=== PATIENT | female | born 1965 | race Caucasian/White ===

== ENCOUNTER 2021-04-01 18:48 | Observation (INO) | payer OTHER ==
[2021-04-01 19:15] VITALS: TEMP 98
[2021-04-01] MEDS ORDERED: NITROGLYCERIN OINT 1 INCH/GM PACKET TOPICAL STA (19:18)
[2021-04-01] MEDS ORDERED: ASPIRIN 81 MG PO STA (19:18)
--- NOTE | 2021-04-01 19:21 | ED ---
General Adult HPI - General Chief complaint: Chest Pain Stated complaint: Chest Pain Time Seen by Provider: 04/01/21 18:50 Source: patient, RN notes reviewed Mode of arrival: ambulatory Limitations: no limitations - History of Present Illness Initial comments: Patient is a pleasant 56-year-old female presenting to the emergency Department with complaints of chest discomfort. Onset of symptoms was this morning. Patient has been at [facility] for the past 4 days. Patient is there secondary to history of snorting heroin. Patient states she normally does this 2 or 3 times per day. No history of similar chest discomfort previously. Discomfort is mild at this time. Discomfort is described as heaviness with some radiation towards the shoulder. There is some mild associated dyspnea and nausea. Patient did feel a little bit sweaty earlier. No leg pain or leg swelling. Symptoms do worsen with exertion. - Related Data Allergies Allergy/AdvReac Type Severity Reaction Status Date / Time Sulfa (Sulfonamide Allergy Swelling Verified 04/01/21 20:07 Antibiotics) Review of Systems ROS Statement: Those systems with pertinent positive or pertinent negative responses have been documented in the HPI. ROS Other: All systems not noted in ROS Statement are negative. Constitutional: Denies: fever Eyes: Denies: eye pain ENT: Denies: ear pain Respiratory: Denies: cough Cardiovascular: Reports: as per HPI, chest pain Endocrine: Reports: fatigue Gastrointestinal: Denies: abdominal pain Genitourinary: Denies: dysuria Musculoskeletal: Denies: back pain Skin: Denies: rash Neurological: Denies: weakness Past Medical History Past Medical History: Osteoarthritis (OA) History of Any Multi-Drug Resistant Organisms: None Reported Past Surgical History: Cholecystectomy, Orthopedic Surgery Past Psychological History: No Psychological Hx Reported Smoking Status: Former smoker Past Alcohol Use History: None Reported Past Drug Use History: Heroin General Exam Limitations: no limitations General appearance: alert, in no apparent distress Head exam: Present: normocephalic Eye exam: Present: normal appearance Neck exam: Present: normal inspection Respiratory exam: Present: normal lung sounds bilaterally. Absent: chest wall tenderness Cardiovascular Exam: Present: regular rate, normal rhythm, normal heart sounds Expanded Peripheral pulses: 2+: Radial (R), Radial (L), Posterior Tibialis (R), Posterior Tibialis (L) GI/Abdominal exam: Present: soft. Absent: tenderness Extremities exam: Present: normal inspection. Absent: pedal edema, calf tenderness Neurological exam: Present: alert Psychiatric exam: Present: normal affect, normal mood Skin exam: Present: normal color Course Vital Signs 04/01/21 04/01/21 04/01/21 19:07 19:27 19:30 Temperature 98.0 F Pulse Rate 58 L 53 L Pulse Rate [ 56 L [facility] [employer] ] Respiratory 18 18 Rate Blood Pressure 141/74 141/74 O2 Sat by Pulse 100 99 Oximetry EKG Findings - EKG Comments: EKG Findings:: Since bradycardia with a rate of 59. AR 126. QRS 98. QT 474. QTC 469. Left axis. Normal QRS. No acute ST change. Medical Decision Making - Medical Decision Making Patient with emesis. Medications ordered. Patient updated. Dr. Mao dorsey for admission covering for hospital call. Case was discussed with Dr. Hinkle, who will admit. - Lab Data Result diagrams: 04/01/21 19:25 04/01/21 03:50 Lab Results 04/01/21 04/01/21 04/01/21 Range/Units 03:50 19:25 19:25 WBC 8.5 (3.8-10.6) k/uL RBC 4.97 (3.80-5.40) m/uL Hgb 13.9 (11.4-16.0) gm/dL Hct 42.9 (34.0-46.0) % MCV 86.3 (80.0-100.0) fL MCH 27.9 (25.0-35.0) pg MCHC 32.3 (31.0-37.0) g/dL RDW 14.7 (11.5-15.5) % Plt Count 210 (150-450) k/uL MPV 7.0 Neutrophils % 88 % Lymphocytes % 10 % Monocytes % 2 % Eosinophils % 0 % Basophils % 0 % Neutrophils # 7.5 (1.3-7.7) k/uL Lymphocytes # 0.8 L (1.0-4.8) k/uL Monocytes # 0.2 (0-1.0) k/uL Eosinophils # 0.0 (0-0.7) k/uL Basophils # 0.0 (0-0.2) k/uL Sodium 136 L (137-145) mmol/L Potassium 4.5 (3.5-5.1) mmol/L Chloride 99 (98-107) mmol/L Carbon Dioxide 28 (22-30) mmol/L Anion Gap 9 mmol/L BUN 15 (7-17) mg/dL Creatinine 0.56 (0.52-1.04) mg/dL Est GFR (CKD-EPI)AfAm >90 (>60 ml/min/1.73 sqM) Est GFR (CKD-EPI)NonAf >90 (>60 ml/min/1.73 sqM) Glucose 106 H (74-99) mg/dL Calcium 9.9 (8.4-10.2) mg/dL Magnesium 2.1 (1.6-2.3) mg/dL Total Bilirubin 0.5 (0.2-1.3) mg/dL AST 36 (14-36) U/L ALT 26 (4-34) U/L Alkaline Phosphatase 71 (38-126) U/L Troponin I <0.012 (0.000-0.034) ng/mL Total Protein 7.3 (6.3-8.2) g/dL Albumin 4.3 (3.5-5.0) g/dL - Radiology Data Radiology results: image reviewed Disposition Clinical Impression: Chest pain Disposition: ADMITTED IP TO THIS [facility] Is patient prescribed a controlled substance at d/c from ED?: No Referrals: Nonstaff,Physician [Primary Care Provider] - 1-2 days Decision Time: 20:05
[2021-04-01 19:43] LABS: Basophils % (A) 0 %; Eosinophils % (A) 0 %; HCT 42.9 % (34.0-46.0); HGB 13.9 gm/dL (11.4-16.0); Lymphocytes # (A) 0.8 k/uL (1.0-4.8); Lymphocytes % (A) 10 %; MCH 27.9 pg (25.0-35.0); MCHC 32.3 g/dL (31.0-37.0); MCV 86.3 fL (80.0-100.0); Monocytes # (A) 0.2 k/uL (0-1.0); Monocytes % (A) 2 %; Neutrophils # (A) 7.5 k/uL (1.3-7.7); Neutrophils % (A) 88 %; Platelet Count 210 k/uL (150-450); RBC 4.97 m/uL (3.80-5.40); RDW 14.7 % (11.5-15.5); WBC 8.5 k/uL (3.8-10.6)
[2021-04-01 19:52] LABS: ALT 26 U/L (4-34); AST 36 U/L (14-36); African American GFR (CKD) >90 (>60 ml/min/1.73 sqM); Albumin 4.3 g/dL (3.5-5.0); Alkaline Phosphatase 71 U/L (38-126); Anion Gap 9 mmol/L; Blood Urea Nitrogen 15 mg/dL (7-17); Calcium 9.9 mg/dL (8.4-10.2); Carbon Dioxide 28 mmol/L (22-30); Chloride 99 mmol/L (98-107); Glucose 106 mg/dL (74-99); Magnesium 2.1 mg/dL (1.6-2.3); Non-African American GFR(CKD) >90 (>60 ml/min/1.73 sqM); Potassium 4.5 mmol/L (3.5-5.1); Sodium 136 mmol/L (137-145); Total Bilirubin 0.5 mg/dL (0.2-1.3); Total Protein 7.3 g/dL (6.3-8.2)
[2021-04-01 20:02] LABS: D-Dimer <0.17 mg/L FEU (<0.60); Partial Thromboplastin Time 22.7 sec (22.0-30.0); Prothrombin Time 10.4 sec (9.0-12.0)
[2021-04-01] MEDS ORDERED: SODIUM CHLORIDE 0.9% 1,000 ML IV STA (20:03)
[2021-04-01] MEDS ORDERED: ONDANSETRON 4 MG/2 ML VIAL IVP STA (20:03)
[2021-04-01] MEDS ORDERED: FAMOTIDINE 20 MG/2 ML VIAL IV STA (20:03)
[2021-04-01] MEDS ORDERED: NITROGLYCERIN SL TABS 0.4 MG TAB SUBLINGUAL PRN (20:05)
--- NOTE | 2021-04-01 20:20 | XR ---
EXAMINATION TYPE: XR chest 2V DATE OF EXAM: 04/01/2021 COMPARISON: NONE HISTORY: Chest pain TECHNIQUE: 2 views FINDINGS: Heart and mediastinum are normal. Lungs are clear. Diaphragm is normal. Bony thorax is inta ct. There are chest leads. IMPRESSION: Normal chest.
[2021-04-01] MEDS: ACETAMINOPHEN TAB 500 MG TAB PO PRN (23:07)
[2021-04-02] MEDS: NITROGLYCERIN OINT 1 INCH/GM PACKET TOPICAL SCH ×2 (02:08→09:16)
[2021-04-02 06:54] VITALS: RESP 15
[2021-04-02] MEDS ORDERED: ASPIRIN 325 MG TAB PO SCH (09:00)
[2021-04-02] MEDS ORDERED: DOBUTamine DRIP for NUC MED 500 MG in DEXTROSE/WATER 1 250ML.BAG IV PRN (09:06)
[2021-04-02] MEDS: ACETAMINOPHEN TAB 500 MG TAB PO PRN (09:14)
[2021-04-02 09:26] LABS: Chol/HDL Ratio 2.46; LDL Cholesterol,Calculated 70.6 mg/dL (0.0-131.0); VLDL Calculation 15.4 mg/dL (5.00-40.00)
--- NOTE | 2021-04-02 09:52 | P.CRDCN ---
History of Present Illness Consult date: 04/02/21 History of present illness: HISTORY OF PRESENT ILLNESS: This is a 56-year-old female with a past medical history significant for former nicotine dependence (quit 16 years ago) and heroin use. 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 We have been asked to see the patient in consultation for chest pain. Patient examined at the bedside. Patient states she is currently at [place] for heroin use. She states she snorts heroin and last used 3 days ago. Patient states yesterday morning she woke up and was feeling in her normal state of health. She states around 10 AM she started feeling a heaviness in her chest and nausea. She reports the pain went into her left arm and jaw. She states the pain lasted until about 5 PM when she finally told the staff and was brought to the hospital for further evaluation. Patient denies chest pain or pressure at the time of examination. Patient states she has a family history of coronary artery disease in her mom had 2 heart attacks when she was in her 50s and her dad had open heart surgery when he was in his 70s. EKG reveals sinus mechanism with no signs of acute ischemia Chest xray negative for acute process Laboratory data: WBC 8.5. Hemoglobin 13.9. Platelet count 210. D-dimer 0.17. Sodium 136. Potassium 4.5. BUN 15. Creatinine 0.56. Magnesium 2.1. Current home cardiac medications include Catapres0.1-0.3mg every 4 hours as needed REVIEW OF SYSTEMS: At the time of my exam: CONSTITUTIONAL: Denies fever or chills. HEENT: Denies blurred vision, vision changes, or eye pain. Denies hemoptysis CARDIOVASCULAR: Denies chest pain. Denies orthopnea. Denies PND. Denies palpitations RESPIRATORY: Denies shortness of breath. GASTROINTESTINAL: Denies abdominal pain. Denies nausea or vomiting. HEMATOLOGIC: Denies bleeding disorders. GENITOURINARY: Denies any blood in urine. SKIN: Denies pruitis. Denies rash. PHYSICAL EXAM: VITAL SIGNS: Reviewed. GENERAL: Well-developed in no acute distress. HEENT: Head is normocephalic. Pupils are equal, round. Sclerae anicteric. Mucous membranes of the mouth are moist. Neck supple. No JVD or thyromegaly LUNGS: Respirations even and unlabored. Lungs essentially clear to auscultation bilaterally. HEART: Regular rate and rhythm. S1 and S2 heard. ABDOMEN: Soft. Nondistended. Nontender. EXTREMITIES: Normal range of motion. No clubbing or cyanosis. Peripheral pulses intact. No lower extremity edema NEUROLOGIC: Awake and alert. Oriented x 3. ASSESSMENT: Chest pain Former nicotine dependence Heroin use, last used 3 days ago Family history of coronary artery disease PLAN: An acute coronary event has been ruled out Obtain 2-D echo to assess cardiac structure and function Patient to undergo dobutamine stress test today to assess for reversible ischemia Nurse practitioner note has been reviewed by physician. Signing provider agrees with the documented findings, assessment, and plan of care. Past Medical History Past Medical History: Osteoarthritis (OA) History of Any Multi-Drug Resistant Organisms: None Reported Past Surgical History: Cholecystectomy, Orthopedic Surgery Past Psychological History: No Psychological Hx Reported Smoking Status: Former smoker Past Alcohol Use History: None Reported Past Drug Use History: Heroin Medications and Allergies Home Medications Medication Instructions Recorded Confirmed Type Acetaminophen [Tylenol 8 Hour] 650 mg PO Q4H PRN MDD 6 TABS 04/01/21 04/01/21 History Calcium-Magnesium Supp 1 dose PO DAILY 04/01/21 04/01/21 History Chlorpheniramine Maleate 4 mg PO Q4H PRN 04/01/21 04/01/21 History [Chlor-Trimeton] Fluticasone Nasal [place] [Flonase 1 spr EA NOSTRIL BID PRN 04/01/21 04/01/21 History Nasal [place]] Hyoscyamine Sulfate [Levsin-Sl] 0.125 mg SL QID PRN 04/01/21 04/01/21 History Ibuprofen [Motrin] 800 mg PO Q8H PRN 04/01/21 04/01/21 History LORazepam [Ativan] 1 - 2 mg PO DIRECTED 04/01/21 04/01/21 History LORazepam [Ativan] 1 - 2 mg PO Q4H PRN 04/01/21 04/01/21 History LORazepam [Ativan] 1 mg PO DIRECTED 04/01/21 04/01/21 History LORazepam [Ativan] 1 mg PO DIRECTED 04/01/21 04/01/21 History Loperamide HCl [Imodium A-D] 4 mg PO QID PRN 04/01/21 04/01/21 History Multivitamins, Thera [Multivitamin 1 tab PO DAILY@0604/01/21 04/01/21 History (formulary)] Thiamine HCl [Vitamin B-1] 100 mg PO DAILY@0600 04/01/21 04/01/21 History Trimethobenzamide HCl [Tigan] 300 mg PO Q6H PRN 04/01/21 04/01/21 History buprenorphine HCL [Subutex] 2 mg SL DIRECTED 04/01/21 04/01/21 History busPIRone HCl [Buspar] 10 mg PO DIRECTED 04/01/21 04/01/21 History cloNIDine HCL [Catapres] 0.1 - 0.3 mg PO Q4H PRN 04/01/21 04/01/21 History cloNIDine HCL [Catapres] 0.1 mg PO Q4H PRN MDD HOLD BP LESS 04/01/21 04/01/21 History THEN 90/60 ondansetron HCL [Zofran] 8 mg PO Q6H PRN 04/01/21 04/01/21 History traZODone HCL [Desyrel] 50 - 150 mg PO HS PRN 04/01/21 04/01/21 History Allergies Allergy/AdvReac Type Severity Reaction Status Date / Time Sulfa (Sulfonamide Allergy Swelling Verified 04/01/21 20:07 Antibiotics) Physical Exam Vitals: Vital Signs Temp Pulse Pulse Resp BP Pulse Ox 04/02/21 09:16 98.0 F 60 15 127/74 98 04/02/21 06:00 60 15 127/74 98 04/01/21 22:57 98.0 F 58 L 20 126/63 98 04/01/21 20:22 53 L 18 182/82 99 04/01/21 19:30 53 L 18 141/74 99 04/01/21 19:27 56 L 04/01/21 19:07 98.0 F 58 L 18 141/74 100 Intake and Output 04/01/21 04/02/21 04/02/21 22:59 06:59 14:59 Other: Weight 81.647 kg Results 04/01/21 19:25 04/01/21 03:50 Cardiac Enzymes 04/01/21 04/01/21 04/01/21 Range/Units 03:50 19:25 21:59 AST 36 (14-36) U/L Troponin I <0.012 <0.012 (0.000-0.034) ng/mL 04/02/21 Range/Units 02:29 AST (14-36) U/L Troponin I <0.012 (0.000-0.034) ng/mL Coagulation 04/01/21 Range/Units 19:25 PT 10.4 (9.0-12.0) sec APTT 22.7 (22.0-30.0) sec Lipids 04/02/21 Range/Units 02:29 Triglycerides 77.0 (0.0-149.0) mg/dL Cholesterol 145 (0-200) mg/dL HDL Cholesterol 59.0 (40.0-60.0) mg/dL Cholesterol/HDL Ratio 2.46 CBC 04/01/21 Range/Units 19:25 WBC 8.5 (3.8-10.6) k/uL RBC 4.97 (3.80-5.40) m/uL Hgb 13.9 (11.4-16.0) gm/dL Hct 42.9 (34.0-46.0) % Plt Count 210 (150-450) k/uL Comprehensive Metabolic Panel 04/01/21 Range/Units 03:50 Sodium 136 L (137-145) mmol/L Potassium 4.5 (3.5-5.1) mmol/L Chloride 99 (98-107) mmol/L Carbon Dioxide 28 (22-30) mmol/L BUN 15 (7-17) mg/dL Creatinine 0.56 (0.52-1.04) mg/dL Glucose 106 H (74-99) mg/dL Calcium 9.9 (8.4-10.2) mg/dL AST 36 (14-36) U/L ALT 26 (4-34) U/L Alkaline Phosphatase 71 (38-126) U/L Total Protein 7.3 (6.3-8.2) g/dL Albumin 4.3 (3.5-5.0) g/dL Current Medications Generic Name Dose Route Start Last Admin Trade Name Freq PRN Reason Stop Dose Admin Acetaminophen 1,000 mg 04/01/21 21:47 04/02/21 09:14 Acetaminophen Tab 500 Mg Tab PO 1,000 mg Q6HR PRN Administration Fever and/ or Pain Aspirin 81 mg 04/03/21 09:00 Aspirin 81 Mg PO DAILY ZHEN Dobutamine HCl/Dextrose 500 mg 250 mls @ 24.494 mls/hr 04/02/21 09:06 / IV Solution IV 04/02/21 13:06 .[id number] PRN Per Protocol Protocol 10 MCG/KG/MIN Nitroglycerin 0.4 mg 04/01/21 20:05 Nitroglycerin Sl Tabs 0.4 Mg Tab SUBLINGUAL Q5M PRN Chest Pain Nitroglycerin 1 inch 04/02/21 00:00 04/02/21 09:16 Nitroglycerin Oint 1 Inch/Gm Packet TOPICAL Not Given Q6HR ZHEN Sodium Chloride 10 ml 04/01/21 21:00 04/02/21 09:15 Sodium Chloride 0.9% Flush 10 Ml Syringe IV 10 ml BID ZHEN Administration Intake and Output 04/01/21 04/02/21 04/02/21 22:59 06:59 14:59 Other: Weight 81.647 kg 04/01/21 19:25 04/01/21 03:50
[2021-04-02] MEDS ORDERED: traZODone HCL 50 MG TAB PO PRN (10:12)
[2021-04-02] MEDS ORDERED: TRIMETHOBENZAMIDE HCL PO PRN (10:12)
[2021-04-02] MEDS ORDERED: LOPERAMIDE 2 MG CAP PO PRN (10:12)
[2021-04-02] MEDS ORDERED: FLUTICASONE 50MCG/SPRAY NASAL 16GM EA NOSTRIL PRN (10:12)
[2021-04-02] MEDS ORDERED: diphenhydrAMINE 25 MG CAP PO PRN (10:12)
[2021-04-02] MEDS ORDERED: NON FORMULARY DRUG (Acetaminophen [Tylenol 8 Hour] 650 MG Tablet.Er) PO PRN (10:12)
[2021-04-02] MEDS ORDERED: HYOSCYAMINE ORAL DROPS 1.875 MG/15 ML BOTTLE SUBLINGUAL PRN (10:12)
[2021-04-02] MEDS ORDERED: BUPRENORPHINE HCL 2 MG SUBLINGUAL SCH (10:15)
[2021-04-02] MEDS ORDERED: busPIRone HCl 10 MG TAB PO SCH (10:15)
[2021-04-02] MEDS ORDERED: traMADol 50 MG TAB PO PRN (10:36)
[2021-04-02] MEDS ORDERED: PANTOPRAZOLE 40 MG/10 ML VIAL IVP SCH (10:45)
--- NOTE | 2021-04-02 12:32 | ECHOS ---
STRESS ECHOCARDIOGRAM LUMASON: @@ Vial INDICATIONS: @@ MEDICATIONS: @@ BASELINE HEART RATE: @@ BASELINE BLOOD PRESSURE: @@ MAXIMUM HEART RATE: @@ MAXIMUM BLOOD PRESSURE: @@ 85% MPHR: @@ 100% MPHR: @@ METS: @@ MAXIMUM STAGE REACHED: @@ TOTAL EXERCISE TIME: @@ CLINICAL INFORMATION: Baseline rhythm is sinus mechanism, rate 53, normal axis, intervals, nonspecific ST-T wave changes. Baseline blood pressure 147/84 mmHg. Patient received an infusion of dobutamine per protocol. Peak rate 140 beats per minute which is equal to 85% maximum predicted heart rate. Peak blood pressure 152/73 mmHg. Electrocardiograph monitoring occasional single PVCs. There was no evidence of diagnostic ischemic ST deviation. Baseline echocardiogram revealed normal wall thickness and motion. At peak infusion, there was normal wall motion augmentation with no hypokinesis or dyskinesis. CONCLUSION: 1. Nondiagnostic electrocardiographic response to dobutamine infusion secondary to baseline EKG abnormality. 2. Normal stress echocardiogram with no evidence of stress-induced ischemia. MMODL / IJN: [id number] /
--- NOTE | 2021-04-02 12:32 | P.DS ---
Providers Date of admission: 04/01/21 20:07 Attending physician: Erika Cavanaugh Primary care physician: Physician Nonstaff Hospital Course: Please refer to HPI for further details Plan - Discharge Summary New Discharge Prescriptions: New traMADol HCl [Ultram] 50 mg PO QID PRN #20 tab PRN Reason: Pain Pantoprazole Sodium [Protonix] 40 mg PO AC-BRKFST #30 tablet.dr Continue Thiamine HCl [Vitamin B-1] 100 mg PO DAILY@0600 Fluticasone Nasal [place] [Flonase Nasal [place]] 1 spr EA NOSTRIL BID PRN PRN Reason: Allergy Symptoms LORazepam [Ativan] 1 mg PO DIRECTED Acetaminophen [Tylenol 8 Hour] 650 mg PO Q4H PRN MDD 6 TABS PRN Reason: Pain Or Fever > 100.5 Loperamide HCl [Imodium A-D] 4 mg PO QID PRN PRN Reason: Diarrhea Hyoscyamine Sulfate [Levsin-Sl] 0.125 mg SL QID PRN PRN Reason: STOMACH CRAMPS ondansetron HCL [Zofran] 8 mg PO Q6H PRN PRN Reason: Nausea Trimethobenzamide HCl [Tigan] 300 mg PO Q6H PRN PRN Reason: Nausea buprenorphine HCL [Subutex] 2 mg SL DIRECTED Multivitamins, Thera [Multivitamin (formulary)] 1 tab PO DAILY@0600 LORazepam [Ativan] 1 - 2 mg PO Q4H PRN PRN Reason: Anxiety, UP TO 12 DOSES LORazepam [Ativan] 1 mg PO DIRECTED LORazepam [Ativan] 1 - 2 mg PO DIRECTED traZODone HCL [Desyrel] 50 - 150 mg PO HS PRN PRN Reason: SLEEP Calcium-Magnesium Supp 1 dose PO DAILY Chlorpheniramine Maleate [Chlor-Trimeton] 4 mg PO Q4H PRN PRN Reason: Anxiety busPIRone HCl [Buspar] 10 mg PO DIRECTED cloNIDine HCL [Catapres] 0.1 mg PO Q4H PRN MDD HOLD BP LESS THEN 90/60 PRN Reason: ANXIETY/ HIGH BP X10 DAYS cloNIDine HCL [Catapres] 0.1 - 0.3 mg PO Q4H PRN PRN Reason: BP OVER 160/108 Discontinued Ibuprofen [Motrin] 800 mg PO Q8H PRN PRN Reason: Pain Discharge Medication List Acetaminophen [Tylenol 8 Hour] 650 mg PO Q4H PRN MDD 6 TABS 04/01/21 [History] Calcium-Magnesium Supp 1 dose PO DAILY 04/01/21 [History] Chlorpheniramine Maleate [Chlor-Trimeton] 4 mg PO Q4H PRN 04/01/21 [History] Fluticasone Nasal [place] [Flonase Nasal [place]] 1 spr EA NOSTRIL BID PRN 04/01/21 [History] Hyoscyamine Sulfate [Levsin-Sl] 0.125 mg SL QID PRN 04/01/21 [History] LORazepam [Ativan] 1 - 2 mg PO DIRECTED 04/01/21 [History] LORazepam [Ativan] 1 - 2 mg PO Q4H PRN 04/01/21 [History] LORazepam [Ativan] 1 mg PO DIRECTED 04/01/21 [History] LORazepam [Ativan] 1 mg PO DIRECTED 04/01/21 [History] Loperamide HCl [Imodium A-D] 4 mg PO QID PRN 04/01/21 [History] Multivitamins, Thera [Multivitamin (formulary)] 1 tab PO DAILY@0600 04/01/21 [History] Thiamine HCl [Vitamin B-1] 100 mg PO DAILY@0600 04/01/21 [History] Trimethobenzamide HCl [Tigan] 300 mg PO Q6H PRN 04/01/21 [History] buprenorphine HCL [Subutex] 2 mg SL DIRECTED 04/01/21 [History] busPIRone HCl [Buspar] 10 mg PO DIRECTED 04/01/21 [History] cloNIDine HCL [Catapres] 0.1 - 0.3 mg PO Q4H PRN 04/01/21 [History] cloNIDine HCL [Catapres] 0.1 mg PO Q4H PRN MDD HOLD BP LESS THEN 90/60 04/01/21 [History] ondansetron HCL [Zofran] 8 mg PO Q6H PRN 04/01/21 [History] traZODone HCL [Desyrel] 50 - 150 mg PO HS PRN 04/01/21 [History] Pantoprazole Sodium [Protonix] 40 mg PO AC-BRKFST #30 tablet. 04/02/21 [Rx] traMADol HCl [Ultram] 50 mg PO QID PRN #20 tab 04/02/21 [Rx] Follow up Appointment(s)/Referral(s): Leslie Best MD [STAFF PHYSICIAN] - As Needed Nonstaff,Physician [Primary Care Provider] - 1-2 days
--- NOTE | 2021-04-02 12:32 | P.HPIM ---
History of Present Illness 54-year-old pleasant female came in for chest pain which started yesterday evening on an of along with the lightheadedness diaphoresis. Patient complains of chest pain as heaviness as a sharp when further questioned she did say it f elt like a gastroesophageal reflux disease. With burning sensation in the epigastric area. just pain is moderate severity with radiation to the left arm and left chair lasted for about an hour. Patient does have family history of premature coronary artery disease. Patient denied any fever chills cough. Chest x-ray did not show pneumonia EKG did not show any acute ST-T wave changes, d-dimer is negative. Patient does have history of coronary abuse does have history of hep C, was on treatment with interferon in the past didn't follow with gastroenterology after that. Patient has been in the rehabilitation program for last 4 days. Patient does take Motrin as an outpatient. Review of Systems REVIEW OF SYSTEMS: CONSTITUTIONAL: No fever, no malaise, no fatigue. HEENT: No recent visual problems or hearing problems. Denied any sore throat. CARDIOVASCULAR: No orthopnea, PND, no palpitations, no syncope. PULMONARY: No shortness of breath, no cough, no hemoptysis. GASTROINTESTINAL: No diarrhea, no nausea, no vomiting, no abdominal pain. NEUROLOGICAL: No headaches, no weakness, no numbness. HEMATOLOGICAL: Denies any bleeding or petechiae. GENITOURINARY: Denies any burning micturition, frequency, or urgency. MUSCULOSKELETAL/RHEUMATOLOGICAL: Denies any joint pain, swelling, or any muscle pain. ENDOCRINE: Denies any polyuria or polydipsia. The rest of the 14-point review of systems is negative. Past Medical History Past Medical History: Osteoarthritis (OA) History of Any Multi-Drug Resistant Organisms: None Reported Past Surgical History: Cholecystectomy, Orthopedic Surgery Past Psychological History: No Psychological Hx Reported Smoking Status: Former smoker Past Alcohol Use History: None Reported Past Drug Use History: Heroin Medications and Allergies Home Medications Medication Instructions Recorded Confirmed Type Acetaminophen [Tylenol 8 Hour] 650 mg PO Q4H PRN MDD 6 TABS 04/01/21 04/01/21 History Calcium-Magnesium Supp 1 dose PO DAILY 04/01/21 04/01/21 History Chlorpheniramine Maleate 4 mg PO Q4H PRN 04/01/21 04/01/21 History [Chlor-Trimeton] Fluticasone Nasal [place] [Flonase 1 spr EA NOSTRIL BID PRN 04/01/21 04/01/21 History Nasal [place]] Hyoscyamine Sulfate [Levsin-Sl] 0.125 mg SL QID PRN 04/01/21 04/01/21 History LORazepam [Ativan] 1 - 2 mg PO DIRECTED 04/01/21 04/01/21 History LORazepam [Ativan] 1 - 2 mg PO Q4H PRN 04/01/21 04/01/21 History LORazepam [Ativan] 1 mg PO DIRECTED 04/01/21 04/01/21 History LORazepam [Ativan] 1 mg PO DIRECTED 04/01/21 04/01/21 History Loperamide HCl [Imodium A-D] 4 mg PO QID PRN 04/01/21 04/01/21 History Multivitamins, Thera [Multivitamin 1 tab PO DAILY@00 04/01/21 04/01/21 History (formulary)] Thiamine HCl [Vitamin B-1] 100 mg PO DAILY@00 04/01/21 04/01/21 History Trimethobenzamide HCl [Tigan] 300 mg PO Q6H PRN 04/01/21 04/01/21 History buprenorphine HCL [Subutex] 2 mg SL DIRECTED 04/01/21 04/01/21 History busPIRone HCl [Buspar] 10 mg PO DIRECTED 04/01/21 04/01/21 History cloNIDine HCL [Catapres] 0.1 - 0.3 mg PO Q4H PRN 04/01/21 04/01/21 History cloNIDine HCL [Catapres] 0.1 mg PO Q4H PRN MDD HOLD BP LESS 04/01/21 04/01/21 History THEN 90/60 ondansetron HCL [Zofran] 8 mg PO Q6H PRN 04/01/21 04/01/21 History traZODone HCL [Desyrel] 50 - 150 mg PO HS PRN 04/01/21 04/01/21 History Pantoprazole Sodium [Protonix] 40 mg PO HAYDEE #30 tablet. 04/02/21 Rx traMADol HCl [Ultram] 50 mg PO QID PRN #20 tab 04/02/21 Rx Allergies Allergy/AdvReac Type Severity Reaction Status Date / Time Sulfa (Sulfonamide Allergy Swelling Verified 04/01/21 20:07 Antibiotics) Physical Exam Vitals: Vital Signs Temp Pulse Pulse Resp BP Pulse Ox 04/02/21 09:16 98.0 F 60 15 127/74 98 04/02/21 06:00 60 15 127/74 98 04/01/21 22:57 98.0 F 58 L 20 126/63 98 04/01/21 20:22 53 L 18 182/82 99 04/01/21 19:30 53 L 18 141/74 99 04/01/21 19:27 56 L 04/01/21 19:07 98.0 F 58 L 18 141/74 100 Intake and Output 04/01/21 04/02/21 04/02/21 22:59 06:59 14:59 Other: Weight 81.647 kg 81.65 kg PHYSICAL EXAMINATION: GENERAL: The patient is alert and oriented x3, not in any acute distress. Well developed, well nourished. HEENT: Pupils are round and equally reacting to light. EOMI. No scleral icterus. No conjunctival pallor. Normocephalic, atraumatic. No pharyngeal erythema. No thyromegaly. CARDIOVASCULAR: S1 and S2 present. No murmurs, rubs, or gallops. PULMONARY: Chest is clear to auscultation, no wheezing or crackles. ABDOMEN: Soft, nontender, nondistended, normoactive bowel sounds. No palpable organomegaly. MUSCULOSKELETAL: No joint swelling or deformity. EXTREMITIES: No cyanosis, clubbing, or pedal edema. NEUROLOGICAL: Gross neurological examination did not reveal any focal deficits. SKIN: No rashes. Results CBC & Chem 7: 04/01/21 19:25 04/01/21 03:50 Labs: Abnormal Lab Results - Last 24 Hours (Table) 04/01/21 04/01/21 Range/Units 03:50 19:25 Lymphocytes # 0.8 L (1.0-4.8) k/uL Sodium 136 L (137-145) mmol/L Glucose 106 H (74-99) mg/dL Assessment and Plan Plan: Chest pain: ruled out acute coronary syndromes patient had a stress test that's negative and patient will be discharged today her chest pain and believed secondary to gastroesophageal reflux disease patient will be started on Protonix Motrin will be discontinued and patient will be given prescription for tramadol. -Nicotine dependence -History of hepatitis C patient will follow with gastro-oncology as an outpatient -Heroine abuse: Patient is already on the third rehabitation program
--- NOTE | 2021-04-02 12:36 | ECHOF ---
Referral Reason:chest pain MEASUREMENTS -------- HEIGHT: 162.6 cm WEIGHT: 81.6 kg BP: RVIDd: 4.1 cm (< 3.3) IVSd: 1.1 cm (0.6 - 1.1) LVIDd: 4.5 cm (3.9 - 5.3) LVPWd: 1.1 cm (0.6 - 1.1) IVSs: 1.4 cm LVIDs: 2.9 cm LVPWs: 1.3 cm LAESV Index (A-L): 35.03 ml/m Ao Diam: 2.5 cm (2.0 - 3.7) AV Cusp: 2.1 cm (1.5 - 2.6) MV EXCURSION: 15.568 mm (> 18.000) MV EF SLOPE: 78 mm/s (70 - 150) EPSS: 0.3 cm MV E Donald: 1.31 m/s MV DecT: 238 ms MV A Donald: 1.00 m/s MV E/A Ratio: 1.31 RAP: 5.00 mmHg RVSP: 41.33 mmHg FINDINGS -------- Sinus rhythm. This was a technically adequate study. The left ventricular size is normal. There is borderline concentric left ventricular hypertrophy. Overall left ventricular systolic function is normal with, an EF between 55 - 60 %. The diastolic filling pattern is normal for the age of the patient 12.65. The right ventricle is moderately enlarged. LA is midly dilated 29-33ml/m2. The right atrial size is normal. Interatrial and interventricular septum intact. The aortic valve is trileaflet, and appears structurally normal. No aortic stenosis or regurgitation. The mitral valve is normal. Mild mitral regurgitation is present. The tricuspid valve appears structurally normal. [id number] tricuspid regurgitation present. There is mild pulmonary hypertension. The right ventricular systolic pressure, as measured by Dop pler, is 41.33mmHg. There is no pulmonic regurgitation present. The aortic root size is normal. IVC Not well visulized. There is no pericardial effusion. CONCLUSIONS -------- 1. There is borderline concentric left ventricular hypertrophy. 2. Overall left ventricular systolic function is normal with, an EF between 55 - 60 %. 3. The right ventricle is moderately enlarged. 4. LA is midly dilated 29-33ml/m2. 5. The aortic valve is trileaflet, and appears structurally normal. No aortic stenosis or regurgitati on. 6. Mild mitral regurgitation is present. 7. [id number] tricuspid regurgitation present. 8. There is mild pulmonary hypertension. COST MANAGER: Pat Carrasquillo RDCS
[2021-04-02] MEDS ORDERED: traMADol 50 MG TAB PO SCH (13:00)
[2021-04-02 13:04] VITALS: BP 139/69; PULSE 58
[2021-04-03] MEDS ORDERED: THIAMINE 100 MG TAB PO SCH (06:00)
[2021-04-03] MEDS ORDERED: ASPIRIN 81 MG PO SCH (09:00)
== END 2021-04-02 18:00 | disposition home or self-care (01) ==
LOC: EC 18:48 → 6NMEDSUR 20:07
PROVIDERS: ADMIT Internal Medicine; ATTEND Internal Medicine
DX: R07.89 Other chest pain (principal); K21.9 Gastro-esophageal reflux disease without esophagitis; F17.200 Nicotine dependence, unspecified, uncomplicated; B19.20 Unspecified viral hepatitis C without hepatic coma; F11.90 Opioid use, unspecified, uncomplicated; Z20.822 Contact with and (suspected) exposure to COVID-19; R06.00 Dyspnea, unspecified; R42 Dizziness and giddiness; R11.2 Nausea with vomiting, unspecified; F32.9 Major depressive disorder, single episode, unspecified; M19.90 Unspecified osteoarthritis, unspecified site; Z88.2 Allergy status to sulfonamides; Z90.49 Acquired absence of other specified parts of digestive tract; Z82.49 Family history of ischemic heart disease and other diseases of the circulatory system
CPT/HCPCS: 96375 ×2; 96374; 99285; 36415; 93005 ×2; 93306; 93351; 85379; 80061; 80053; 83735; 84484 ×2; 85025; 85610; 85730; 87635; 71046; G0378 ×2; J1250; J2405; C9113